=== PATIENT | female | born 1980 | race Caucasian/White ===

== ENCOUNTER → 2016-10-29 | Outpatient (CLI) | payer OTHER ==
--- NOTE | 2016-10-30 09:18 | CONS ---
This patient is 36. She is feeling tired all the time. She was found to have low iron, iron deficiency and she was placed on multivitamins and iron supplements. She is feeling very tired especially at the end of the day. Not a whole lot of sleepiness. [place] score of 5. She does not dose off easily and she is pretty much awake and fatigued. She goes to bed around 10:30 p.m., wakes up 7:00 a.m. No clear cut history of snoring or witnessed apnea. No insomnia. No choking or gasping for air in the middle of the night. No grinding of the teeth. No sleep walking. She talks occasionally and she acts on her dreams. No restlessness in the lower extremities. No history of a creepy crawly sensation in the legs or arms. FAMILY HISTORY: Negative for sleep apnea. No substance abuse, no head trauma. PAST MEDICAL HISTORY: Iron deficiency, congenital hearing problems and chronic allergic rhinitis. PAST SURGICAL HISTORY: None. MEDICATIONS: None. SOCIAL HISTORY: The patient is a nonsmoker, no tobacco or illicit drugs. She works in a [employer] in [place]. FAMILY HISTORY: Negative for sleep apnea. Positive for heart disease and hyperlipidemia. REVIEW OF SYSTEMS: 12 point review of system was done. Positive findings were mentioned above. HISTORY OF PRESENT ILLNESS: BP is 100/67, pulse 67, respirations 18, temperature 98.2, saturation 99% on room air. Neck size is 12.5. BMI is 25. Weight is 150. Height is 5 feet 4 inches. GENERAL APPEARANCE: Calm, comfortable. HEENT: Negative for JVD. No goiter or neck mass. LUNGS: Clear to auscultation. HEART: Heart sounds are regular rate and rhythm. Normal S1/S2 ABDOMEN: Soft, nontender. No organomegaly. EXTREMITIES: No edema, no cyanosis or clubbing. IMPRESSION: 1. Chronic fatigue with limited sleepiness, [place] score of 5. Possible sleep apnea although this is doubtful. 2. Iron deficiency. 3. Congenital hearing loss. 4. Allergic rhinitis. PLAN: 1. Proceed with a home sleep study with main interest being to rule out sleep apnea. 2. Will follow. [facility] HOSPITALJocelin
== END | disposition home or self-care (01) ==
LOC: SLEEP 16:04
PROVIDERS: ATTEND Internal Medicine Critical Care Medicine
DX: E61.1 Iron deficiency (principal); R53.82 Chronic fatigue, unspecified; H90.5 Unspecified sensorineural hearing loss; J30.9 Allergic rhinitis, unspecified
CPT/HCPCS: 99211

== ENCOUNTER → 2017-05-05 | Outpatient (CLI) | payer OTHER ==
--- NOTE | 2017-05-05 07:13 | XR ---
EXAMINATION TYPE: XR chest 2V DATE OF EXAM: 05/05/2017 COMPARISON: NONE INDICATION: Asthma TECHNIQUE: Frontal and lateral views of the chest are obtained. FINDINGS: The heart size is normal. The pulmonary vasculature is normal. The lungs are clear. IMPRESSION: 1. No acute pulmonary process.
== END | disposition home or self-care (01) ==
LOC: RADXRMAIN 06:49
PROVIDERS: ATTEND Family Medicine
DX: J45.30 Mild persistent asthma, uncomplicated (principal)
CPT/HCPCS: 71046

== ENCOUNTER → 2018-05-26 | Outpatient (CLI) | payer OTHER ==
--- NOTE | 2018-05-26 12:57 | MM ---
Reason for exam: screening (asymptomatic). Last mammogram was performed 7 years ago. History: Patient is nulliparous. Physical Findings: A clinical breast exam by your physician is recommended on an annual basis and results should be correlated with mammographic findings. MG 3D Screening Mammo W/Cad Bilateral CC, MLO, and XCCL view(s) were taken. Prior study comparison: May 15, 2011, CAD bilateral diagnostic mammogram. The breast tissue is extremely dense which could obscure a lesion on mammography. No significant changes when compared with prior studies. ASSESSMENT: Negative, BI-RAD 1 RECOMMENDATION: Routine screening mammogram of both breasts in 1 year. Patient should continue monthly self breast exams. A negative report should not preclude additional follow up of suspicious palpable abnormalities.
== END | disposition home or self-care (01) ==
LOC: RADMAMWWP 06:59
PROVIDERS: ATTEND Family Medicine
DX: Z12.31 Encounter for screening mammogram for malignant neoplasm of breast (principal)
CPT/HCPCS: 77063; 77067

== ENCOUNTER → 2020-08-15 | Outpatient (CLI) | payer OTHER ==
--- NOTE | 2020-08-16 12:32 | MM ---
Reason for exam: screening (asymptomatic). Last mammogram was performed 2 years and 3 months ago. History: Patient is nulliparous. Physical Findings: A clinical breast exam by your physician is recommended on an annual basis and results should be correlated with mammographic findings. MG Screening Mammo w CAD Bilateral CC and MLO view(s) were taken. Prior study comparison: May 26, 2018, bilateral MG 3d screening mammo w/cad. May 15, 2011, CAD bilateral diagnostic mammogram. The breast tissue is extremely dense which could obscure a lesion on mammography. No significant changes when compared with prior studies. ASSESSMENT: Benign, BI-RAD 2 RECOMMENDATION: Routine screening mammogram of both breasts in 1 year.
== END | disposition home or self-care (01) ==
LOC: RADMAMWWP 07:02
PROVIDERS: ATTEND Family Medicine
DX: Z12.31 Encounter for screening mammogram for malignant neoplasm of breast (principal)
CPT/HCPCS: 77067